=== PATIENT | female | born 1965 | race Caucasian/White ===

== ENCOUNTER 2024-06-30 13:02 | Emergency (ER) | payer OTHER, SELFPAY ==
[2024-06-30 13:04] VITALS: BP 143/81
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
== END 2024-06-30 14:18 | disposition home or self-care (01) ==
LOC: EMR 13:02
PROVIDERS: EMERGENCY PHYSICIAN Student in an Organized Health Care Education/Training Program; FAMILY PHYSICIAN Internal Medicine
DX: S09.90XA Unspecified injury of head, initial encounter (principal); R51.9 Headache, unspecified; R11.0 Nausea; H53.8 Other visual disturbances; W18.09XA Striking against other object with subsequent fall, initial encounter; R03.0 Elevated blood-pressure reading, without diagnosis of hypertension; J45.909 Unspecified asthma, uncomplicated
CPT/HCPCS: 99282

== ENCOUNTER 2024-10-13 11:26 | Emergency (ER) | payer OTHER, SELFPAY ==
[2024-10-13 11:29] VITALS: BP 129/73
[2024-10-13 11:49] LABS: % Basophils 0.2 % (0-2); % Eosinophils 0.3 % (0-6); % Immature Granulocytes 0.4 % (0-0.5); % Lymphocytes 15.4 % (20.5-51.1); % Monocytes 5.6 % (1.7-9.3); % Neutrophils 78.1 % (42.2-75.2); Absolute Lymphocytes 1.7 10^3/uL (1.2-3.4); Absolute Monocytes 0.6 10^3/uL (0.1-0.6); Absolute Neutrophils 8.4 10^3/uL (1.4-6.5); Hematocrit 42.9 % (37.0-47.0); Hemoglobin 14.6 g/dL (12.0-16.0); Mean Corpuscular Hgb 30.7 pg (27.0-31.0); Mean Corpuscular Volume 90.1 fL (81.0-99.0); Mean Platelet Volume 8.1 fL (7.4-10.4); Nucleated Red Blood Cells % 0 %; Platelet Count 296 10^3/uL (130-400); Red Blood Cell Count 4.76 10^6/uL (4.20-5.40); Red Cell Dist. Width 12.3 % (11.5-14.5); White Blood Cell Count 10.8 10^3/uL (4.8-10.8)
[2024-10-13 11:56] LABS: COVID-19 Antigen Negative (Negative)
[2024-10-13 12:00] LABS: ALT (SGPT) 27 U/L (0-35); AST (SGOT) 29 U/L (14-36); Albumin 4.9 g/dl (3.5-5.0); Alkaline Phosphatase 78 U/L (38-126); Blood Urea Nitrogen 13 mg/dl (7-17); Calcium 10.3 mg/dl (8.4-10.2); Carbon Dioxide 24 mmol/L (22-30); Chloride 103 mmol/L (98-107); Glucose 119 mg/dl (70-99); Potassium 4.3 mmol/L (3.5-5.1); Sodium 141 mmol/L (135-145); Total Bilirubin 0.5 mg/dl (0.2-1.3); Total Protein 7.5 g/dl (6.3-8.2); eGFR > 60.00
--- NOTE | 2024-10-13 12:13 | ED.GENMED ---
History of Present Illness
General
Chief Complaint: Abdominal Symptoms
Source: patient
Time Seen by Provider: 10/13/24 12:00
History of Present Illness
History of Present Illness:
This patient is a 59-year-old female who states that on around October 02 she started to get 'sick and redness of cold associated with congestion that she felt in her chest and a cough, possibly a subjective fever. The fever resolved within 24
hours but her URI symptoms continued. She went away on vacation and she returned on Sunday and noted that she now had yellow phlegm with her cough. She had a telemedicine visit yesterday and was prescribed steroids and an antibiotic,
doxycycline. She states that she does not believe she is ever been on doxycycline before but has had prednisone many times in the past given her history of asthma. She took 2 doses of these medications yesterday and awoke today with repeated
episodes of nonbloody vomiting as well as persistent nausea. She denies abdominal pain but states that she just feels very uncomfortable. She describes her arms feeling heavy. She denies rash, itchiness, throat tightness, trouble swallowing,
change in voice, trismus, drool, severe headache, neck stiffness or pain, photophobia. When asked about chest pain she states it feels a little 'heavy' on the left side ever since this morning. This is without provoking or relieving factors and is
not pleuritic in nature.
Past History
Past History
ED Past Medical History: Asthma and Psychiatric
ED Past Surgical History: Appendectomy
Social History
Tobacco: Former smoker
Alcohol: Occasional
Drug: None
Personal: Single
Living: with family
Phy Exam
Physical Exam
Physical Exam:
GENERAL: Alert , in no apparent distress
EYE: pupils equal and reactive
NECK: Supple, no significant adenopathy.
ENT: o/p clr, mmm, no trismus, no drool, voice clear.
CARDIAC: Regular rate and rhythm .
LUNGS: Equal breath sounds bilaterally, no acute respiratory distress, no rales or rhonchi, occasional wheezing noted
ABDOMEN: Soft, without focal tenderness, no r/g, no cvat
NEUROLOGICAL: Alert and oriented, no focal neuro deficits
SKIN: Warm and dry, skin intact, no rash or urticaria noted
MUSCULOSKELETAL: No edema, well perfused.
PSYCH: Normal and appropriate interaction.
Course
Orders/Labs/Results
Orders:
Orders
10/13/24 11:34
COVID-19 Antigen Urgent
Source: Nasal Swab
Complete Blood Count/With Diff Urgent
Comprehensive Metabolic Panel Urgent
Influenza A+B Rapid Molecular Urgent
MIRYAM Source: Nasal Swab
Specimen Description:
10/13/24 12:11
0.9% Sodium Chloride 500 ml [Nss] 500 ml IV BOLUS
Ondansetron Injectable [Zofran] 4 mg IV NOW STA
10/13/24 12:12
Electrocardiogram (*1) Stat
Reason for Study: Other
Other Reason for Exam: chest pain
Cardiac Monitoring- Treatment ONCE
EKG- Treatment ONCE
10/13/24 12:13
CR Obstruct Series W/pa Chest Urgent
Comment:
Reason For Exam: n/v hx appy
10/13/24 12:27
Troponin I Urgent
Abnormal Lab Results
10/13/24
11:34
Absolute Neuts (auto) 8.4 H 10^3/uL
(1.4-6.5)
Neutrophils % 78.1 H %
(42.2-75.2)
Lymphocytes % 15.4 L %
(20.5-51.1)
Glucose 119 H mg/dl
(70-99)
Calcium 10.3 H mg/dl
(8.4-10.2)
10/13/24 11:34
10/13/24 11:34
Vital Signs
Initial and Last Documented VS:
Initial Vital Signs
Temp Pulse Resp BP Pulse Ox
97.5 F 86 18 129/73 100
10/13/24 11:29 10/13/24 11:29 10/13/24 11:29 10/13/24 11:29 10/13/24 11:29
Last Documented Vital Signs
Temp Pulse Resp BP Pulse Ox
97.5 F 84 21 125/88 98
10/13/24 11:29 10/13/24 12:45 10/13/24 12:45 10/13/24 12:29 10/13/24 12:36
Update Note
Update Note:
Patient presents to the Emergency Department with nausea and vomiting
Number and Complexity of Problems Addressed at the Encounter
� Chronic conditions affecting care:
� Acute Exacerbation and/or Progression of Chronic Illness:
� Differential Diagnosis includes: But not limited to viral illness, bowel obstruction, ACS, etc. etc.
Amount and/or Complexity of Data to be Reviewed and Analyzed
� I performed an independent evaluation of and my interpretation is:
EKG:nsr, nl rate, nl axis, no acute ischemia
CT:
Xrays: obst series, nad
Laboratory Studies:generally unremarkable
Other:
� Review of other/old records reveals:
� Clinical information was obtained by an independent historian: Daughter who is bedside
� Prescriptions/Medications Considered but not given:
� Further testing considered but not performed:
Risk of Complications and/or Morbidity or Mortality of Patient Management
� Social determinants of health affecting care:
� Discussion with other providers (PCP, Hospitalists, Consultants, etc):
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 NIH = 0 here, motor strength intact.
140pm Abd soft, nt, nd. Pt feels much better, no pain, no n/v. Will give po trial.
Possible sxs realted to an adverse rxn to doxycycline. I recommend she d/c this med. axr noted here, no infiltrates on cxr. Suzeley bronchitis, would not be recommend different/new abx at this time.
ED Attending Note
-
Portions of this chart may have been created with voice recognition software.� Occasional wrong word or��sound alike� substitutions may have occurred due to the inherent limitations of voice recognition software.
Discharge Plan
Departure
Patient Disposition: Home (Routine Discharge)
Date of Disposition: 10/13/24
Time of Disposition: 13:42
Patient with high blood pressure during this ER visit?: Yes
Condition: Good
Discharge Problem:
Vomiting
Instructions: Nausea and Vomiting, Adult (DC), BLOOD PRESSURE
Referrals:
Tripp Hastings, DO [Family Provider] - Tomorrow
Activity Restrictions/Additional Instructions:
IF YOU DEVELOP DIZZINESS, CHEST PAIN, TROUBLE BREATHING, FEVER, REPEATED VOMITING, ABDOMINAL PAIN, NUMBNESS, WEAKNESS, OR OTHER WORRISOME SIGNS, GO TO THE ER IMMEDIATELY!
Interventions
Interventions:
*Risk Screen - Suicide Last Done: 10/13/24 11:30
*General Assessment Last Done: 10/13/24 12:36
*Neglect/Abuse Screening Last Done: 10/13/24 11:30
ED- Fall Risk Assessment Last Done: 10/13/24 12:36
*ED COVID-19 Vaccine History Last Done: 10/13/24 12:36
SB-Mjpqpg-Qmjkxidasv Assessment Last Done: 10/13/24 12:36
Discharge Date and Time
Print Language: SWEDISH
[2024-10-13 12:29] VITALS: BP 125/88
[2024-10-13 12:36] VITALS: BMI 29.3
[2024-10-13] MEDS: ZOFRAN 4 MG IV (12:53)
[2024-10-13] MEDS: NSS 500 IV (12:55)
[2024-10-13 13:00] VITALS: BP 143/93
[2024-10-13 13:11] LABS: Troponin I < 0.012 ng/ml
[2024-10-13 14:07] VITALS: BP 143/83
[2024-10-13 14:09] VITALS: BP 154/86
[2024-10-13] MEDS: REGLAN 10 MG IV (14:21)
[2024-10-13] MEDS: BENADRYL 25 MG IV (14:22)
[2024-10-13 15:00] VITALS: BP 134/82
== END 2024-10-13 15:50 | disposition home or self-care (01) ==
LOC: EMR 11:26
PROVIDERS: Student in an Organized Health Care Education/Training Program; EMERGENCY PHYSICIAN Emergency Medicine; FAMILY PHYSICIAN Internal Medicine
DX: R11.2 Nausea with vomiting, unspecified (principal); R05.9 Cough, unspecified; J45.909 Unspecified asthma, uncomplicated; Z87.891 Personal history of nicotine dependence; Z90.49 Acquired absence of other specified parts of digestive tract
CPT/HCPCS: 99283; 96374; 96375; 96361; 74022; 80053; 84484; 85025; 87502; 87811; 93005

== ENCOUNTER → 2025-02-02 13:05 | Outpatient (REF) | payer OTHER, SELFPAY | LOC: HWRAD 13:05 | PROVIDERS: ATTENDING PHYSICIAN Nurse Practitioner Primary Care | DX: Z13.820 Encounter for screening for osteoporosis (principal) | CPT/HCPCS: 77080 ==

== ENCOUNTER → 2025-03-02 11:54 | Outpatient (REF) | payer OTHER, SELFPAY | LOC: PAVMRI 11:54 | PROVIDERS: ATTENDING PHYSICIAN Nurse Practitioner Primary Care | DX: R41.3 Other amnesia (principal); E78.2 Mixed hyperlipidemia | CPT/HCPCS: 70551 ==

== ENCOUNTER → 2025-03-12 15:59 | Outpatient (REF) | payer OTHER, SELFPAY | LOC: HWRCS 15:59 | PROVIDERS: ATTENDING PHYSICIAN Nurse Practitioner Primary Care | DX: R01.1 Cardiac murmur, unspecified (principal) | CPT/HCPCS: 93306 ==

== ENCOUNTER → 2025-03-17 19:33 | Outpatient (REF) | payer OTHER, SELFPAY | LOC: WDC 19:33 | PROVIDERS: ATTENDING PHYSICIAN Nurse Practitioner Primary Care | DX: Z12.31 Encounter for screening mammogram for malignant neoplasm of breast (principal) | CPT/HCPCS: 77063; 77067 ==

== ENCOUNTER → 2025-09-28 15:26 | Outpatient (REF) | payer OTHER, SELFPAY ==
[2025-09-28 17:22] LABS: ALT (SGPT) 27 U/L (0-35); AST (SGOT) 24 U/L (14-36); Albumin 4.8 g/dl (3.5-5.0); Alkaline Phosphatase 65 U/L (38-126); Blood Urea Nitrogen 14 mg/dl (7-17); Calcium 10.5 mg/dl (8.4-10.2); Carbon Dioxide 31 mmol/L (22-30); Chloride 101 mmol/L (98-107); Glucose 97 mg/dl (70-99); Potassium 4.3 mmol/L (3.5-5.1); Sodium 139 mmol/L (135-145); Total Protein 7.3 g/dl (6.3-8.2); eGFR > 60.00
[2025-09-28 17:59] LABS: Cortisol, Random 5.8 ug/dl
== END ==
LOC: HWRAD 15:26
PROVIDERS: ATTENDING PHYSICIAN Nurse Practitioner Primary Care; REFERRING PHYSICIAN Nurse Practitioner Family
DX: M54.6 Pain in thoracic spine (principal); D35.02 Benign neoplasm of left adrenal gland
CPT/HCPCS: 36415; 72072; 80053; 82024; 82088; 82533; 82627; 83835; 84244